=== PATIENT | male | born 1975 | race Caucasian/White ===

== ENCOUNTER → 2020-04-13 | Emergency (ER) | payer MEDICAID ==
[~2020-04-13] VITALS: Ht 177.8 cm; Wt 81.2 kg
[2020-04-13 02:29] VITALS: BP 108/71
== END | disposition home or self-care (01) ==
LOC: ER 04:14
DX: S93.402A Sprain of unspecified ligament of left ankle, initial encounter (principal); Z88.8 Allergy status to other drugs, medicaments and biological substances; X58.XXXA Exposure to other specified factors, initial encounter; Y93.89 Activity, other specified; Y92.89 Other specified places as the place of occurrence of the external cause; Y99.8 Other external cause status
CPT/HCPCS: 73610; 99283